=== PATIENT | male | born 1955 | race Caucasian/White ===

== ENCOUNTER → 2024-11-30 | Outpatient (CLI) | payer OTHER ==
--- NOTE | 2024-11-30 14:08 | HMCIMG ---
ABD 1VW HISTORY: Constipation COMPARISON: None FINDINGS: A frontal projection of the abdomen was obtained. A nonspecific bowel gas pattern is seen. Fecal material is seen in the colon. Findings are suggestive of constipation. IMPRESSION: 1. A nonspecific bowel gas pattern is seen.
== END ==
LOC: RAH 11:40
PROVIDERS: ATTEND Nurse Practitioner Family
DX: K56.41 Fecal impaction (principal)
CPT/HCPCS: 74018